=== PATIENT | male | born 1970 | race Caucasian/White ===

== ENCOUNTER → 2020-02-01 10:48 | Outpatient (CLI) | payer OTHER ==
[2014-06-27 09:56] VITALS: BMI 23.7
== END | disposition home or self-care (01) ==
LOC: D.LAB 10:48
PROVIDERS: ATTEND Internal Medicine Pulmonary Disease
DX: Z11.59 Encounter for screening for other viral diseases (principal)

== ENCOUNTER → 2020-02-03 09:04 | Outpatient (CLI) | payer OTHER ==
[2014-06-27 09:56] VITALS: BMI 23.7
[2020-02-03 12:18] LABS: APTT 29.9 SECONDS (22.8-39.4); INR 0.97 (0.85-1.17); PROTIME 12.8 SECONDS (11.6-15.0)
[2020-02-04 06:11] LABS: IMMUNOGLOBULIN A 142 mg/dL (90-386)
[2020-02-04 10:12] LABS: ANA REFLEX - ANTICHROMATIN ABS <0.2 AI (0.0-0.9); ANA REFLEX - CENTROMERE B ABS 0.3 AI (0.0-0.9); ANA REFLEX - DBL STRANDED DNA <1 IU/mL (0-9); ANA REFLEX - DIRECT Positive (Negative); ANA REFLEX - JO-1 AB <0.2 AI (0.0-0.9); ANA REFLEX - RNP ANTIBODIES 5.1 AI (0.0-0.9); ANA REFLEX - SCL-70 <0.2 AI (0.0-0.9); ANA REFLEX - SJOGRENS AB SSA <0.2 AI (0.0-0.9); ANA REFLEX - SJOGRENS AB SSB <0.2 AI (0.0-0.9); ANA REFLEX - SMITH AB <0.2 AI (0.0-0.9)
[2020-02-05 06:10] LABS: IGG SUBCLASS 1 599 mg/dL (248-810); IGG SUBCLASS 2 320 mg/dL (130-555); IGG SUBCLASS 3 68 mg/dL (15-102); IGG SUBCLASS 4 83 mg/dL (2-96); IGGS - IGG SERUM 1156 mg/dL (603-1613)
[2020-02-05 21:06] LABS: IMMUNOGLOBULIN E 154 IU/mL (6-495)
== END | disposition home or self-care (01) ==
LOC: D.ECHO 09:00 → D.RT 10:00
PROVIDERS: ATTEND Internal Medicine Pulmonary Disease
DX: R06.00 Dyspnea, unspecified (principal); J90 Pleural effusion, not elsewhere classified; J45.909 Unspecified asthma, uncomplicated; R07.9 Chest pain, unspecified; Z87.01 Personal history of pneumonia (recurrent); Z87.09 Personal history of other diseases of the respiratory system; J30.9 Allergic rhinitis, unspecified